=== PATIENT | female | born 1995 | race Caucasian/White ===

== ENCOUNTER 2022-07-31 08:49 | Emergency (ER) | payer MEDICAID, SELFPAY ==
[2022-07-31 08:55] VITALS: BP 125/77; PULSE 111; RESP 18; TEMP 37.2; O2SAT 100; BMI 25.7
--- NOTE | 2022-07-31 09:05 | PC.PHAR ---
pt states she takes no rx or otc meds -no meds show on ext med history
--- NOTE | 2022-07-31 09:18 | ED_ITS ---
HPI - Skin/Abscess/Foreign Bdy General: Chief complaint: Skin/Abscess/Foreign Body Stated complaint: burn on lt thigh, poss infected Time Seen by Provider: 07/31/22 08:51 Source: patient Mode of arrival: ambulatory History of Present Illness: 27-year-old female presents emergency room with a burn in the left posterior thigh. She had what she thought was an ingrown hair and a friend of hers advised her of a home remedy of applying boiling water to the lesion in a jar. Evidently they did try that at home resulted in a area of burn on the posterior left thigh it is granulating and at this point she is concerned about infection evidently she does not have running water in her home. She has been applying a bandage to it and putting topical antibiotic ointment on it complaint: other (Burn) Onset (ago): week(s) Location: LLE Quality: pruritic Relieving factors: none Exacerbating factors: none Associated symptoms: Deny arthralgias, chills, cough, fever(s), itching, myalgias, nausea, rigidity, short of breath or vomiting Treatments prior to arrival: bandages and OTC topical medication Review of Systems Const: Denies: fever(s), chills, fatigue or malaise ENMT: Denies: throat pain, ear or mastoid pain, nasal discharge or nasal congestion Card: Denies: chest pain, edema, dyspnea on exertion or orthopnea Resp: Denies: dyspnea, productive cough or non-productive cough GI: Denies: abdominal pain, nausea or vomiting : Denies: flank pain, difficulty voiding, dysuria, urinary frequency or urinary urgency Skin/Breast: Reports: other (Burn left posterior thigh); Denies: rash or pruritus Physical Exam Skin: OTHER: To yellowFull-thickness burn posterior left thigh approximately 2 inches irregular round granulating in from the edges mucus at the base. No sign of infection there is some irritation with mechanical pattern lester from tape used to cover the wound. No induration no drainage no abscess Course Vital Signs: Vital signs: Vital Signs Temperature 99.0 F 07/31/22 08:55 Pulse Rate 94 07/31/22 09:33 Respiratory Rate 16 07/31/22 09:33 Blood Pressure 125/77 07/31/22 08:55 Pulse Oximetry 100 07/31/22 09:33 Oxygen Delivery Me thod Room Air 07/31/22 08:55 MDM - Skin/Abscess/Foreign Bdy Medicial Decision Making Apply mupirocin twice daily to the wound keep clean will refer to wound clinic no sign infection at time do not recommend oral antibiotics. Medical Records I reviewed the patient's medical records. Discharge Plan Discharge Patient Disposition: Home Clinical Impression: Burn of third degree of left thigh, initial encounter Condition: Stable Prescriptions: New mupirocin 2 % ointment 1 applic topical BID Qty: 22 0RF Discharge Orders: Discharge ED (Routine); Ordered 07/31/22 Ordered By: Addi Stark Discharge Activity: Increase activity as tolerated Patient Instructions: Third-Degree Burn (ED), Opioid Safety, Pain Management Activity Restrictions/Additional Instructions: Case management make arrangements for you to have follow-up at the wound care clinic Coding Level of Care Code ED Engineering And Operations Director for Josephine Duncan
[2022-07-31] MEDS: tetanus-dipt-pertussis 0.5 mL SDV IM (09:22)
--- NOTE | 2022-07-31 09:32 | PC.NURSE ---
APPLIED TELFA DRESSING WITH TAPE TO LEFT LATERAL THIGH.
[2022-07-31 09:33] VITALS: PULSE 94; RESP 16; O2SAT 100
--- NOTE | 2022-07-31 09:43 | PC.NURSE ---
UPON DC PT DENIES ANY REACTION TO TDAP. PT IS AMB WITH A STEADY GAIT UNASSISTED.
--- NOTE | 2022-08-01 09:35 | PC.SOCIAL ---
Addendum entered by Hilaria Gerardo 08/18/22 12:47: Patient had a follow up appointment scheduled with wound care - patient did not attend appointment. Original Note: Wound Care Referral sent to wound clinic at this time. Clinic to contact patient with appt date/time.
== END 2022-07-31 09:43 | disposition home or self-care (01) ==
PROVIDERS: Emergency Provider Family Medicine
DX: T24.312A Burn of third degree of left thigh, initial encounter (principal); X12.XXXA Contact with other hot fluids, initial encounter; Z23 Encounter for immunization
CPT/HCPCS: 90471; 90715; 99282

== ENCOUNTER 2024-07-21 07:45 | Emergency (ER) | payer SELFPAY ==
[2024-07-21 07:56] VITALS: BP 130/84; PULSE 78; RESP 18; TEMP 36.8; O2SAT 98
--- NOTE | 2024-07-21 07:59 | ED_ITS ---
HPI - Dental/Oral General: Chief complaint: Dental/Oral Stated complaint: lower left jaw pain Time Seen by Provider: 07/21/24 07:47 Source: patient Mode of arrival: ambulatory Limitations: no limitations History of Present Illness: 29-year-old female that she has been hav ing left lower toothache for the last 3 days states the pain is worse in his currently 7 out of 10 denies any fevers had no difficulty swallowing. Associated symptoms: Denies fever(s) Related Data Previous Rx's ?Medication ?Instructions ?Recorded mupirocin 2 % topical ointment 1 applic topical BID #2 2 grams 07/31/22 cephalexin 500 mg capsule 500 mg PO TID 7 days #21 cap s 07/21/24 naproxen 500 mg tablet (Naprosyn) 500 mg PO BID PRN pa in #20 tabs 07/21/24 Allergies Allergy/AdvReac Type Severity Reaction Status Date / Time No Known Allergies Allergy Verified 07/31/22 09:04 Review of Systems Const: Denies: fever(s), chills, body aches or change in appetite ENMT: Reports: dental pain; Denies: throat pain Card: Denies: chest pain GI: Denies: vomiting Musc: Denies: neck pain or back pain Skin/Breast: Denies: rash Neuro: Denies: headache(s) Physical Exam Const: COMMON NORMALS: no acute distress, patient oriented x3 and healthy appearing HENMT: COMMON NORMALS: normocephalic and atraumatic HEAD & SCALP: normocephalic and atraumatic OTHER: Poor dentition tenderness over left lower molar no abscess no trismus Eye: COMMON NORMALS: conjunctivae normal CONJUNCTIVA: Yes conjunctivae normal Neck/C-Spine: COMMON NORMALS: full ROM and supple Chest: COMMONS NORMALS: normal inspection of the chest Resp: COMMON NORMALS: normal respiratory effort Cardio: COMMON NORMALS: regular rate RATE: regular rate Extremity: COMMON NORMALS: normal to inspection Neuro: COMMON NORMALS: patient oriented x3, moves all extremities and no focal motor deficits Psych: COMMON NORMALS: mental status grossly normal, Normal thought process present and cooperative THOUGHT PROCESS: Normal thought process present Skin: COMMON NORMALS: no rashes or lesions noted and no wounds GENERAL SKIN EXAM: no rashes or lesions noted Course Vital Signs: Vital signs: Vital Signs Temperature 98.2 F 07/21/24 07:56 Pulse Rate 78 07/21/24 07:56 Respiratory Rate 18 07/21/24 07:56 Blood Pressure 130/84 07/21/24 07:56 Pulse Oximetry 98 07/21/24 07:56 Oxygen Delivery Me thod Room Air 07/21/24 07:56 MDM - Dental/Oral Medical Decision Making Patient presents here with dental pain no trismus no abscess she is well- appearing here we will place her on antibiotics she is follow-up with PCP return if worsening. Medical Records I reviewed the patient's medical records. No radiology studies performed this visit Discharge Plan Discharge Patient Disposition: Home Clinical Impression: Toothache Condition: Stable Prescriptions: New cephalexin 500 mg capsule 500 mg PO TID 7 Days Qty: 21 0RF naproxen [Naprosyn] 500 mg tablet 500 mg PO BID PRN (Reason: pain) Qty: 20 0RF No Action mupirocin 2 % ointment 1 applic topical BID Qty: 22 0RF Discharge Orders: Discharge ED (Routine); Ordered 07/21/24 Ordered By: Alberto Kat Discharge Diet: Advance as tolerated Discharge Activity: Resume usual activity Patient Instructions: Toothache (ED) Print Language: Macedonian Coding Level of Care Code ED Wire Drawing Machine Operator for Josephine Duncan
[2024-07-21] MEDS: HYDROcodone-acetaminophen 7.5-325 mg Tablet 1 TAB PO (08:07)
[2024-07-21 08:13] VITALS: BP 130/84; PULSE 78; O2SAT 98
== END 2024-07-21 08:15 | disposition home or self-care (01) ==
PROVIDERS: Emergency Provider Emergency Medicine
DX: K08.89 Other specified disorders of teeth and supporting structures (principal)
CPT/HCPCS: 99283; J9999

== ENCOUNTER 2024-09-23 09:26 | Emergency (ER) | payer SELFPAY ==
[2024-09-23 09:40] VITALS: BP 120/78; PULSE 98; TEMP 36.9; O2SAT 98; BMI 25.7
--- NOTE | 2024-09-23 10:59 | W.ED.SKABFB ---
HPI - Skin/Abscess/Foreign Bdy General: Chief complaint: Skin/Abscess/Foreign Body Stated complaint: R underarm pain, swelling Time Seen by Provider: 09/23/24 09:28 Source: patient Mode of arrival: ambulatory Limitations: no limitations History of Present Illness: Patient is a 29-year-old female presents to ED today due to concern of a possible abscess to her right axillary region. She states about 2 weeks ago she noticed to pimple like lesions to her axilla. She states since then lesions have continued to enlarge and become more painful. She has not noticed any drainage. No systemic symptoms. She states area is exquisitely tender and worsens with range of motion of her arm and feels like the area rubs. complaint: abscess/boil Onset (ago): day(s) Tetanus up to date: yes Location: RUE Severity: moderate Pain Consistency: constant Relieving factors: none Exacerbating factors: other (movement of arm) Context: none Associated symptoms: Deny chills, fever(s) or vomiting Treatments prior to arrival: none Related Data Previous Rx's ?Medication ?Instructions ?Recorded clindamycin HCl 300 mg capsule 300 mg PO Q6H 7 days #28 caps 09/23/24 tramadol 50 mg tablet 50 mg PO Q6H PRN pain #14 tabs 09/23/24 Allergies Allergy/AdvReac Type Severity Reaction Status Date / Time No Known Allergies Allergy Verified 09/23/24 09:45 Review of Systems Const: Denies: fever(s), chills, body aches, fatigue or malaise Card: Denies: chest pain Resp: Denies: dyspnea GI: Denies: vomiting Musc: Reports: other (pain/swelling skin to R axillary region) Skin/Breast: Reports: skin pain (R axilla) Physical Exam Const: COMMON NORMALS: no acute distress, average body habitus, patient oriented x3, no limitations, healthy appearing, alert and well nourished GENERAL APPEARANCE: cooperative Resp: COMMON NORMALS: normal respiratory effort and clear to auscultation bilaterally AUSCULTATION: clear to auscultation bilaterally Cardio: COMMON NORMALS: regular rate and regular rhythm RATE: regular rate RHYTHM: regular rhythm Extremity: COMMON NORMALS: full ROM, capillary refill normal and no clubbing, cyanosis or edema NARRATIVE EXTREMITY EXAM: significant edematous collection of multi-loculated appearing abscesses to R axillary region; exquisitely tender to touch; no obvious large areas of fluctuance noted; no drainage GENERAL: Yes normal exam except as noted Neuro: COMMON NORMALS: patient oriented x3 SENSORIUM/ORIENTATION: Yes alert Skin: NARRATIVE SKIN EXAM: see above Course Vital Signs: Vital signs: Vital Signs Temperature 98.4 F 09/23/24 09:40 Pulse Rate 100 09/23/24 11:01 Blood Pressure 118/69 09/23/24 11:01 Pulse Oximetry 91 09/23/24 11:01 Oxygen Delivery Me thod Room Air 09/23/24 11:01 MDM - Skin/Abscess/Foreign Bdy Medicial Decision Making Discussed ultrasound with US tech-there does not appear to be any obvious drainable fluid collections. She has multi-loculated collections. DDx at this time includes staph abscess and hidradenitis suppurativa although she has no history of similar lesions. Will place on antibiotics and have her follow-up with general surgery. Return ED precautions discussed. Medical Records I reviewed the patient's medical records. Lab Data I reviewed the patient's lab results. 09/23/24 11:30 09/23/24 11:30 Radiology Impressions Soft Tissue Ultrasound 09/23/24 11:04 Impression: Abnormal fluid collection in right axilla. Laboratory Results WBC 11.54 10^3/uL (3.29-11.43) H 09/23/24 11:30 RBC 4.56 10^6/uL (3.85-5.65) 09/23/24 11:30 Hgb 13.40 g/dL (11.27-16.99) 09/23/24 11:30 Hct 40.5 % (36-47) 09/23/24 11:30 MCV 88.8 fl (85-98) 09/23/24 11:30 MCH 29.4 pg (27-33) 09/23/24 11:30 MCHC 33.1 g/dL (30-55) 09/23/24 11:30 RDW 12.4 % (12.1-15.1) 09/23/24 11:30 Plt Count 311 10^3/cmm (157-399) 09/23/24 11:30 MPV 9.7 fL (7.4-10.4) 09/23/24 11:30 Neut % (Auto) 79.9 % 09/23/24 11:30 Lymph % (Auto) 12.7 % 09/23/24 11:30 Tyrrell % (Auto) 6.2 % 09/23/24 11:30 Eos % (Auto) 0.6 % 09/23/24 11:30 Baso % (Auto) 0.3 % 09/23/24 11:30 Neut # (Auto) 9.23 10^3/uL (1.8-7.7) H 09/23/24 11:30 Lymph # (Auto) 1.5 10^3/uL (0.8-4.8) 09/23/24 11:30 Tyrrell # (Auto) 0.7 10^3/uL (0.2-0.9) 09/23/24 11:30 Eos # (Auto) 0.1 10^3/uL (0.0-0.8) 09/23/24 11:30 Baso # (Auto) 0.0 10^3/uL (0.0-0.1) 09/23/24 11:30 Nucleated RBC % (auto) 0 % 09/23/24 11:30 Nucleated RBCs # 0.0 /100WBC 09/23/24 11:30 Sodium 138 mmol/L (136-145) 09/23/24 11:30 Potassium 3.7 mmol/L (3.5-5.1) 09/23/24 11:30 Chloride 102 mmol/L (98-107) 09/23/24 11:30 Carbon Dioxide 25 mmol/L (22-29) 09/23/24 11:30 Anion Gap 14.7 (5-19) 09/23/24 11:30 BUN 6 mg/dL (6-20) 09/23/24 11:30 Creatinine 0.6 mg/dL (0.5-0.9) 09/23/24 11:30 GFR Calculation 117.4 mL/min (90-130) 09/23/24 11:30 Glucose 101 mg/dL (65-115) 09/23/24 11:30 Calculated Osmolality 284 mOsm/kg (285-295) L 09/23/24 11:30 Calcium 9.1 mg/dL (8.5-10.5) 09/23/24 11:30 Total Bilirubin 0.3 mg/dL (0.15-1.2) 09/23/24 11:30 AST 10 U/L (0-32) 09/23/24 11:30 ALT 8 U/L (0-33) 09/23/24 11:30 Alkaline Phosphatase 112 U/L (35-105) H 09/23/24 11:30 Total Protein 7.5 g/dL (6.6-8.7) 09/23/24 11:30 Albumin 4.0 g/dL (3.5-5.2) 09/23/24 11:30 Globulin 3.5 g/dL (1.3-4.6) 09/23/24 11:30 All radiology interpretation(s) finalized by discharge Discharge Plan Discharge Patient Disposition: Home Clinical Impression: Abscess of axilla, right Condition: Stable Prescriptions: New clindamycin HCl 300 mg capsule 300 mg PO Q6H 7 Days Qty: 28 0RF tramadol 50 mg tablet 50 mg PO Q6H PRN (Reason: pain) Qty: 14 0RF Discharge Orders: Discharge ED (Routine); Ordered 09/23/24 Ordered By: Sonja Linares Patient Instructions: Patient Portal & Milady Instructions Activity Restrictions/Additional Instructions: As we discussed, fill your antibiotics and start them immediately. I will place a case management referral to try to get you set up with general surgery in case symptoms do not improve. You need to return to the emergency department for worsening pain, swelling, fevers, area continuing to enlarge, or any other concerns you may have. Print Language: Macedonian Coding Level of Care Code ED Product Technician for Josephine Duncan
[2024-09-23 11:01] VITALS: BP 118/69; PULSE 100; O2SAT 91
--- NOTE | 2024-09-23 11:04 | US_ITS ---
WS: [id number] Subcutaneous ultrasound of the right axilla, 09/23/2024 Clinical Data: R axillary mass Comparison: None. Findings: There is a collection of fluid and irregular tissue in the right axilla. This could represent a complex fluid collection and/or subcutaneous abscess. US/US soft tissue/extremity [id number] Impression: Abnormal fluid collection in right axilla.
[2024-09-23 11:45] LABS: Hematocrit 40.5 % (36-47); Hemoglobin 13.40 g/dL (11.27-16.99); Mean Corpuscular HGB Conc 33.1 g/dL (30-55); Mean Corpuscular Hemoglobin 29.4 pg (27-33); Mean Corpuscular Volume 88.8 fl (85-98); Nucleated Red Blood Cells % 0 %; Platelet Count 311 10^3/cmm (157-399); Red Blood Count 4.56 10^6/uL (3.85-5.65); White Blood Count 11.54 10^3/uL (3.29-11.43)
--- NOTE | 2024-09-23 11:52 | PC.NURSE ---
METALLURGY LABORATORY TECHNICIAN took medications to pt, pt reports not wanting the morphine d/t reactions pt has had in the past, pt also states she doesn't want the zofran, states she is not nausea.
[2024-09-23 12:03] LABS: Alanine Aminotransferase 8 U/L (0-33); Albumin Level 4.0 g/dL (3.5-5.2); Alkaline Phosphatase 112 U/L (35-105); Anion Gap 14.7 (5-19); Aspartate Amino Transferase 10 U/L (0-32); Blood Urea Nitrogen 6 mg/dL (6-20); Calcium 9.1 mg/dL (8.5-10.5); Carbon Dioxide 25 mmol/L (22-29); Chloride 102 mmol/L (98-107); Creatinine Clr Calc Pharmacy 124.9879; Globulin 3.5 g/dL (1.3-4.6); Glucose 101 mg/dL (65-115); Osmolality Calculated 284 mOsm/kg (285-295); Potassium 3.7 mmol/L (3.5-5.1); Sodium 138 mmol/L (136-145); Total Protein 7.5 g/dL (6.6-8.7)
[2024-09-23 12:19] VITALS: BP 104/57; PULSE 86; O2SAT 97
--- NOTE | 2024-09-26 08:44 | DCPLANNER ---
messaged gen surg for er f/u
== END 2024-09-23 12:20 | disposition home or self-care (01) ==
PROVIDERS: Emergency Provider Physician Assistant
DX: L02.411 Cutaneous abscess of right axilla (principal)
CPT/HCPCS: 36415; 76882; 80053; 85025; 99284; J9999